=== PATIENT | male | born 1945 | race Caucasian/White ===

== ENCOUNTER → 2018-01-12 | Day surgery (SDC) | payer MEDICARE, OTHER ==
[~2018-01-12] MED LIST: AMLO5TAB2 PO; ASPI-437 PO; BUPIVACAINE HCL PF 0.75% 30 ML VIAL ONE; CYCL5TAB PO; FENO160T PO; FISH100020 PO; GABA300C5 PO; HYDR-3366 PO; HYDR12.56 PO; K-TA10TA PO; METO25TA3 PO; PRIL20TA2 PO; PROPOFOL 200 MG/20 ML AMP IV ONE; ROSU20 PO; TRIAMCINOLONE ACETONIDE 40 MG/ML VIAL I-ARTICULR ONE
--- NOTE | 2018-01-12 08:52 | M6 ---
cc: Tiff Pena MD DATE: 01/12/2018 PROCEDURE PERFORMED: Fluoroscopically-guided injection right lumbar facet joints (right L3-L4, L4-L5 and L5-S1 facet joints). History and physical was completed and signed. Consent was signed. Procedure site was marked. Medications were listed and reconciled. Pain score was recorded. Allergies were noted. Time out was taken. Fluoroscopy time was recorded where applicable. Sedation was administered or directed by Dr. Pena. The patient was given oxygen. The patient was monitored by a registered nurse. Total procedure time was greater than 15 minutes. IV was started. Blood pressure cuff, pulse oximeter and EKG were applied. The patient was placed in the prone position on the Saji table, sedated with small amounts of propofol titrated to effect. Vital signs were monitored and remained stable throughout the procedure. The lumbar area was prepped with alcohol and 10% Betadine solution and draped with sterile drapes. Fluoroscopy was used in a Santy dog view to clearly visualize the right lumbar facet joints at L3-L4, L4-L5 and L5-S1. Separate sterile 3-1/2 inch, 25 gauge spinal needles were advanced into the joint under fluoroscopic guidance. There was negative aspiration for blood or any other type of fluid and at each location the patient was given 1 mL of Marcaine 0.75%, which contained 10 mg of Kenalog. Following the procedure, the patient was taken to the recovery room with stable vital signs and neurologically intact. He will be evaluated immediately and with followup to determine if he has subjective decrease in his usual pain and a corresponding objective increase in his functional capabilities. Tiff Pena MD WRM/TL , 08:36 AM , 08:51 AM
== END | disposition home or self-care (01) ==
LOC: PHSDC 06:11
PROVIDERS: ATTEND Pain Medicine Interventional Pain Medicine
DX: M54.5 Low back pain (principal)
CPT/HCPCS: 64493; 64494; 64495; 99152; J3301

== ENCOUNTER → 2018-01-26 | Day surgery (SDC) | payer MEDICARE, OTHER ==
[~2018-01-26] MED LIST changes: +BUPIVACAINE HCL PF 0.5% 30 ML VIAL ONE; -BUPIVACAINE HCL PF 0.75% 30 ML VIAL ONE
--- NOTE | 2018-01-26 09:55 | M6 ---
cc: Tiff Pena MD DATE: 01/26/2018 PROCEDURE PERFORMED: Fluoroscopically-guided injection of bilateral thoracic facet joints, bilateral T4, T5 and T10 facet joints. History and physical was completed and signed. Consent was signed. Procedure site was marked. Medications were listed and reconciled. Pain score was recorded. Allergies were noted. Time out was taken. Fluoroscopy time was recorded where applicable. Sedation was administered or directed by Dr. Pena. The patient was given oxygen. The patient was monitored by a registered nurse. Total procedure time was greater than 15 minutes. DESCRIPTION OF THE PROCEDURE: IV was started. Blood pressure cuff, pulse oximeter and EKG were applied. The patient was placed in the prone position on a Saji table sedated with small amounts of propofol titrated to effect. Vital signs were monitored and remained stable throughout the procedure. Thoracic area was prepped with alcohol and 10% Betadine solution and draped with sterile drapes. Fluoroscopy was used to visualize the bilateral facet joints at T4, T5 and T6. Separate sterile 3-1/2 inch, 25 gauge spinal needles were advanced to these joints under fluoroscopic guidance. There was negative aspiration for blood or any other type of fluid and at each location, the patient was given 1 mL of 0.5% Marcaine which contained 10 mg of Kenalog. Following this, the patient was taken to the recovery room with stable vital signs and neurologically intact. He will be evaluated immediately and with followup to determine if he has a subjective decrease in his usual pain and a corresponding increase in his functional capabilities. ADDENDUM: On 01/12/2018, we injected Mr. Veloz's right lumbar facet joints. He comes today to report significant relief. He states that his pain has been reduced by 75%. He just has a mild ache and so far he is very pleased with the results that he has had. We will simply observe him for the duration of effect. MD STAN Mar/ALVA , 08:38 AM , 09:55 AM
== END | disposition home or self-care (01) ==
LOC: PHSDC 06:23
PROVIDERS: ATTEND Pain Medicine Interventional Pain Medicine
DX: M54.5 Low back pain (principal)
CPT/HCPCS: 64490; 64491; 64492; 99152; J3301